=== PATIENT | female | born 1945 | race Caucasian/White ===

== ENCOUNTER 2016-07-29 11:40 | Outpatient (CLI) | payer MEDICARE ==
[2016-07-29 12:28] LABS: eGFR (African) > 60; eGFR (Non-African) > 60
== END 2016-07-29 11:42 ==
LOC: LAB 11:40
PROVIDERS: ATTEND Family Medicine
DX: G60.9 Hereditary and idiopathic neuropathy, unspecified (principal); E78.5 Hyperlipidemia, unspecified; R73.9 Hyperglycemia, unspecified
CPT/HCPCS: 36415; 80053; 80061; 83036; 84443

== ENCOUNTER 2016-08-27 08:21 | Day surgery (SDC) | payer MEDICARE ==
--- NOTE | 2016-08-28 13:55 | Operative Note ---
SURGEON: Roddy Henning MD ANESTHESIA: MAC anesthesia. ESTIMATED BLOOD LOSS: None. COMPLICATIONS: None. FINDINGS: Three polyps in the right colon, 1 very small, less than 1 cm, and 2 flat carpeting 2 to 3 cm lesions all completely removed with a snare and hot biopsy. PREOPERATIVE DIAGNOSES: 1. Screening. 2. Family history of colon cancer. POSTOPERATIVE DIAGNOSIS: Colon polyps. PROCEDURE PERFORMED: Colonoscopy with polypectomy. INDICATIONS FOR PROCEDURE: This is a 70-year-old woman who presents for screening. She has no symptoms. She does have a brother that had colon cancer. DESCRIPTION OF PROCEDURE: The patient is brought to the operating room and after MAC anesthesia administered, she was placed in the left lateral decubitus position. A rectal exam was performed which was normal. The colonoscope was inserted and passed to the cecum. The prep was adequate. The appendiceal orifice and ileocecal valve were identified. In the cecum, there was about a 3 cm flat carpeting polyp which was completely removed with a combination of snare and hot biopsy. There was a little bit less than 1 cm sessile polyp just distal to the ileocecal valve which was also removed with a hot biopsy. In the distal right colon, there was a second carpeting sessile polyp measuring about 2.5 cm which was also likewise completely removed with a snare. The colonoscope was then completely retracted. There were no other polyps or lesions noted. DISPOSITION: We will await her pathology, but she will likely need repeat in 1 year due to the piecemeal nature of the excision. cc: Dr. Boni MIRANDA
== END 2016-08-27 08:22 ==
LOC: OPSURG 08:21
PROVIDERS: ATTEND Colon & Rectal Surgery
DX: Z12.11 Encounter for screening for malignant neoplasm of colon (principal); K63.5 Polyp of colon; Z80.0 Family history of malignant neoplasm of digestive organs
CPT/HCPCS: 45385; 88305; J2001; J2704; J7120; S1016

== ENCOUNTER 2017-08-10 10:43 | Outpatient (CLI) | payer MEDICARE | END 2017-08-10 12:52 | LOC: LAB 10:43 | PROVIDERS: ATTEND Family Medicine | DX: R73.9 Hyperglycemia, unspecified (principal); E55.9 Vitamin D deficiency, unspecified; Z11.59 Encounter for screening for other viral diseases | CPT/HCPCS: 36415; 82306; 83036; 86803 ==

== ENCOUNTER 2017-08-23 11:43 | Day surgery (SDC) | payer MEDICARE ==
[2017-08-23] MEDS ORDERED: PROPOFOL 500 MG/50 ML VIAL IV ONE (11:44)
[2017-08-23] MEDS ORDERED: LACTATED RINGERS 1,000 ML IV.SOLN IV ONE (11:44)
[2017-08-23] MEDS ORDERED: SALINE FLUSH 10 ML DISP.SYRIN IVF ONE (11:44)
--- NOTE | 2017-08-23 13:40 | GI Report ---
REFERRING PHYSICIAN: Dr. Boni Croft CONSULTING MARINE ENGINEER: Miguel Miller MD PROCEDURE MEDICATION: Propofol as per anesthesia. INDICATIONS: A high-risk follow up. She had a colonoscopy and a polyp in the cecum, sessile , removed piecemeal by Dr. Henning last year. She denies any change in bowel habits. No abdominal pain. PROCEDURE PERFORMED: Colonoscopy. PROCEDURE: An Olympus video colonoscope was advanced to the rectum. She had an extremely atonic redundant colon. It took maneuvering to finally reach the base of the cecum. We lavaged that area several times and went back and forth re-looking at the cecum in different angles and did not see any residual polyp at present. On slow withdrawal, the cecum, ascending colon, and transverse colon with no obvious intraluminal lesions noted. The descending colon and sigmoid with redundancy. No obvious intraluminal lesions noted. FINDINGS: 1. An extremely atonic redundant colon. 2. I do not see residual polyp at present. RECOMMENDATIONS: 1. A high-fiber diet. 2. 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 cc: Dr. Boni MIRANDA
== END 2017-08-23 11:44 ==
LOC: OPSURG 11:43
PROVIDERS: ATTEND Internal Medicine Gastroenterology
DX: Z86.010 Personal history of colon polyps (principal)
CPT/HCPCS: J2704; J7120; 45378; S1016